=== PATIENT | female | born 1945 | race Caucasian/White ===

== ENCOUNTER 2018-11-23 18:32 | Emergency (ER) | payer OTHER ==
[~2018-11-23] VITALS: Ht 165.1 cm; Wt 45.4 kg
[~2018-11-23 18:32] MED LIST: ALDACTONE25 MG PO; LOPRESSOR25 PO
[2018-11-23] MEDS ORDERED: ALEVE220 MG PO (18:46)
[2018-11-23 19:17] LABS: HEMATOCRIT 34.4 % (37.0-47.0); HEMOGLOBIN 11.9 gm/dL (12.0-15.0); MCH 36.2 pg (26.0-34.0); MCHC 34.7 g/dL (28.0-37.0); MCV 104.2 fL (80.0-100.0); PLATELET COUNT 273 thou/uL (150-400); RDW 13.2 % (10.5-14.5); WBC 5.2 thou/uL (4.0-11.0)
[2018-11-23 19:32] LABS: ANION GAP 13 mmol/L (7-16); BUN 33 mg/dL (7-18); CALCIUM 9.4 mg/dL (8.5-10.1); CHLORIDE 100 mmol/L (98-107); CO2 24 mmol/L (21-32); CREATININE 1.1 mg/dL (0.6-1.0); GLUCOSE 97 mg/dL (74-106); POTASSIUM 4.3 mmol/L (3.5-5.1); SODIUM 137 mmol/L (136-145)
[2018-11-23 19:40] LABS: TROPONIN-I <0.06 ng/mL (<0.06)
[2018-11-23 19:55] LABS: ABSOLUTE NEUTROPHILS 3.5 thou/uL (1.4-8.2); METAMYELOCYTES 1 %
[2018-11-23 19:57] LABS: MACROCYTES 1+
[2018-11-23] MEDS ORDERED: LIPITOR 20 MG T20 M1 PO (20:13)
[2018-11-23 22:16] VITALS: BP 127/88
--- NOTE | 2018-11-24 22:40 | EKG ---
[place] [address] [address] 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: : 1945 Requested By: Yamileth Chavira Order Number: [id number] MD: Ramo Petersen Measurements Intervals [place] Rate: 84 P: 71 MD: 160 QRS: -13 QRSD: 84 T: 56 QT: 355 QTc: 420 Interpretive Statements Sinus rhythm RSR' in V1 or V2, right VCD or RVH Compared to ECG 05/26/2014 19:50:16 Right ventricular hypertrophy now present Electronically Signed On 11-24-2018 22:40:41 CDT by Ramo Petersen [email or web address] ��������������������������������������������� <ELECTRONICALLY SIGNED> ���������������������������������������� By: Ramo Petersen MD ��������������������������������������������� 11/24/18 2720 45 45 Ramo Petersen MD /[email or web address]
== END 2018-11-23 22:17 | disposition home or self-care (01) ==
LOC: ER 18:32
PROVIDERS: Emergency Medicine
DX: R07.89 Other chest pain (principal); R42 Dizziness and giddiness; I10 Essential (primary) hypertension